=== PATIENT | female | born 1965 | race African-American/Black ===

== ENCOUNTER 2017-10-08 15:49 | Outpatient (CLI) | payer BC, OTHER | END 2017-10-08 15:50 | disposition home or self-care (01) | LOC: BICMAMMO 15:49 | PROVIDERS: ATTEND Family Medicine | DX: Z12.31 Encounter for screening mammogram for malignant neoplasm of breast (principal); N63.20 Unspecified lump in the left breast, unspecified quadrant; N63.10 Unspecified lump in the right breast, unspecified quadrant | CPT/HCPCS: 77063; 77067 ==

== ENCOUNTER 2019-04-14 08:10 | Outpatient (CLI) | payer BC ==
--- NOTE | 2019-04-14 10:25 | MMO ---
Bilateral MAMMO Bilat Screen [facility]. CLINICAL HISTORY: Patient is 53 years old and is seen for screening. The patient has no family history of breast cancer. The patient has no personal history of cancer. VIEWS: The views performed were: bilateral craniocaudal with tomosynthesis and bilateral mediolateral oblique with tomosynthesis. FILMS COMPARED: The present examination has been compared to a prior imaging study performed at [facility] on 10/08/2017. This study has been interpreted with the assistance of computer-aided detection. MAMMOGRAM FINDINGS: There are scattered fibroglandular densities. Finding 1: There are stable benign appearing calcifications seen in both breasts. Finding 2: There are several stable intramammary lymph nodes seen in both breasts. There are no suspicious masses, suspicious calcifications, or new areas of architectural distortion. IMPRESSION: THERE IS NO MAMMOGRAPHIC EVIDENCE OF MALIGNANCY. A ROUTINE FOLLOW-UP MAMMOGRAM IN 1 YEAR IS RECOMMENDED. THE RESULTS OF THIS EXAM WERE SENT TO THE PATIENT. ACR BI-RADS Category 2 - Benign finding MAMMOGRAPHY NOTE: 1. A negative mammogram report should not delay a biopsy if a dominant of clinically suspicious mass is present. 2. Approximately 10% to 15% of breast cancers are not detected by mammography. 3. Adenosis and dense breasts may obscure an underlying neoplasm. Reported by: LUANN EDGE MD Electonically Signed: [id number]
== END 2019-04-14 08:11 | disposition home or self-care (01) ==
LOC: BICMAMMO 08:10
PROVIDERS: ATTEND Family Medicine
DX: Z12.31 Encounter for screening mammogram for malignant neoplasm of breast (principal)
CPT/HCPCS: 77063; 77067

== ENCOUNTER 2020-04-24 08:50 | Outpatient (CLI) | payer BC ==
--- NOTE | 2020-04-24 09:32 | ULT ---
ULTRASOUND PELVIC DOPPLER DUPLEX: DATE: 04/24/2020 HISTORY: 54-year-old female with "pelvic mass R19.00" TECHNIQUE: Transabdominal transducer used to visualize intrapelvic contents with grayscale, color-flow, and spec tral analysis. Transvaginal ultrasound not performed. FINDINGS: Uterus:10 x 6 x 5.5 cm.. Endometrial stripe: Not visualized Right ovary:Not visualized. Left ovary:Not visualized. Uterine leiomyoma (fibroid):2.9 x 3.3 x 3.6 cm solid myometrial mass at fundus and body of the uterus , centered anteriorly. 1.3 x 1.8 x 1.2 cm solid mass at lower uterine segment. Free fluid in the cul-de-sac:None IMPRESSION: 1) at least 2 uterine leiomyomata (fibroids). The larger one is approximately 3.5 cm, and is at the f undus/corpus. 2) bilateral ovaries not visualized. 3) transvaginal ultrasound not performed.
== END 2020-04-24 08:51 | disposition home or self-care (01) ==
LOC: BICULT 08:50
PROVIDERS: ATTEND Family Medicine
DX: R19.00 Intra-abdominal and pelvic swelling, mass and lump, unspecified site (principal); D25.9 Leiomyoma of uterus, unspecified
CPT/HCPCS: 76856

== ENCOUNTER 2020-05-03 15:37 | Outpatient (CLI) | payer BC ==
--- NOTE | 2020-05-03 16:18 | MMO ---
Bilateral MAMMO Bilat Screen DDI+BOB. CLINICAL HISTORY: Patient is 54 years old and is seen for screening. The patient has no family history of breast cancer. The patient has no personal history of cancer. VIEWS: The views performed were: bilateral craniocaudal with tomosynthesis and bilateral mediolateral oblique with tomosynthesis. FILMS COMPARED: The present examination has been compared to prior imaging studies performed at [facility] on 10/08/2017 and 04/14/2019. This study has been interpreted with the assistance of computer-aided detection. MAMMOGRAM FINDINGS: There are scattered fibroglandular densities. Finding 1: There are stable benign appearing calcifications seen in both breasts. Finding 2: There are several stable intramammary lymph nodes seen in both breasts. There are no suspicious masses, suspicious calcifications, or new areas of architectural distortion. IMPRESSION: THERE IS NO MAMMOGRAPHIC EVIDENCE OF MALIGNANCY. A ROUTINE FOLLOW-UP MAMMOGRAM IN 1 YEAR IS RECOMMENDED. THE RESULTS OF THIS EXAM WERE SENT TO THE PATIENT. ACR BI-RADS Category 2 - Benign finding MAMMOGRAPHY NOTE: 1. A negative mammogram report should not delay a biopsy if a dominant of clinically suspicious mass is present. 2. Approximately 10% to 15% of breast cancers are not detected by mammography. 3. Adenosis and dense breasts may obscure an underlying neoplasm. Reported by: IMER MC MD Electonically Signed: [id number]
== END 2020-05-03 15:38 | disposition home or self-care (01) ==
LOC: BICMAMMO 15:37
PROVIDERS: ATTEND Family Medicine
DX: Z12.31 Encounter for screening mammogram for malignant neoplasm of breast (principal)
CPT/HCPCS: 77063; 77067

== ENCOUNTER 2020-08-17 13:39 | Outpatient (CLI) | payer BC ==
[2020-08-17] MEDS ORDERED: Lidocaine 1% PF 10 ML AMP ONE (14:30)
[2020-08-17] MEDS ORDERED: Gadobenate Dimeglumine 529 MG/1 ML (20ML VIAL) ONE (14:30)
[2020-08-17] MEDS ORDERED: Iopamidol 300 61% 50 ML VIAL FS ONE (14:30)
[2020-08-17] MEDS ORDERED: EPINEPHrine 1 MG/ML AMP ONE (14:30)
== END 2020-08-17 13:40 | disposition home or self-care (01) ==
LOC: RAD 13:39
PROVIDERS: ATTEND Orthopaedic Surgery
DX: M25.511 Pain in right shoulder (principal); M19.011 Primary osteoarthritis, right shoulder
CPT/HCPCS: 23350; A9577; J0171; J2001; Q9967

== ENCOUNTER 2021-06-08 08:21 | Outpatient (CLI) | payer BC | END 2021-06-08 08:22 | disposition home or self-care (01) | LOC: BICMAMMO 08:21 | PROVIDERS: ATTEND Family Medicine | DX: Z12.31 Encounter for screening mammogram for malignant neoplasm of breast (principal); Z91.89 Other specified personal risk factors, not elsewhere classified | CPT/HCPCS: 77063; 77067 ==

== ENCOUNTER 2021-06-11 14:20 | Outpatient (CLI) | payer BC | END 2021-06-11 14:21 | disposition home or self-care (01) | LOC: BICULT 14:20 | PROVIDERS: ATTEND Nurse Practitioner Family | DX: C54.1 Malignant neoplasm of endometrium (principal); D25.9 Leiomyoma of uterus, unspecified | CPT/HCPCS: 76856 ==

== ENCOUNTER 2022-08-09 11:11 | Outpatient (CLI) | payer BC | END 2022-08-09 11:12 | disposition home or self-care (01) | LOC: BICCT 11:11 | PROVIDERS: ATTEND Family Medicine | DX: R10.32 Left lower quadrant pain (principal) | CPT/HCPCS: 74177 ==

== ENCOUNTER 2022-08-19 12:07 | Outpatient (CLI) | payer BC | END 2022-08-19 12:08 | disposition home or self-care (01) | LOC: BICMAMMO 12:07 | PROVIDERS: ATTEND Family Medicine | DX: Z12.31 Encounter for screening mammogram for malignant neoplasm of breast (principal); Z91.89 Other specified personal risk factors, not elsewhere classified | CPT/HCPCS: 77063; 77067 ==